=== PATIENT | female | born 1940 | race Caucasian/White ===

== ENCOUNTER → 2017-03-02 | Outpatient (CLI) | payer BC ==
[2017-01-22 10:56] VITALS: BP 135/60
[~2017-03-02] MED LIST: AMLO2.5T PO; AMLO5TAB2 PO; AMOX250C PO; ASPI-630 PO; CALC1TAB PO; CHOL500016 PO; DOCU50CA9 PO; IBAN150T PO; LISI40TA PO; MULT1TAB6 PO; OMEG300C PO; PANT40TA5 PO; PRAV40TA2 PO; REGADENOSON 0.4 MG/5 ML DISP.SYRIN. IV ONE; SENN8.6T99 PO; SPIR25TA3 PO; SUCR1TAB35 PO; VIT1TABL32 PO; WARF-78 PO; [UNRECOGNIZED DRUG - OTHER] SWSW; iron
--- NOTE | 2017-03-02 13:33 | RAD ---
APPROVED REPORT Test Type: Pharmacological Stress Nurse/Tech: Padmini Gillette R.N. Test Indications: elevated troponin Cardiac History: htn, high chol, dm Medications: see ehr Medical History: see ehr Resting ECG: sr Resting Heart Rate: 73 bpm Resting Blood Pressure: 194/78mmHg Pretest Chest Pain: No chest pain Nurse/Tech Notes lungs cta, heart tones regular Consent: The procedure was explained to the patient in lay terms. Informed consent was witnessed. Paulino eout was entered into [employer]. History and Stress Test performed by LORIN Delgado, ALIYAH (R) (N) Pharm. Details Pharmacologic stress testing was performed using 0.4mg per 5ml of regadenoson given intravenously ove r 7-10 seconds. Stress Symptoms No chest pain or symptoms. Low abd tightness and pain POST EXERCISE Reason for Termination: Infusion complete Target HR: No Max HR: 117 bpm Max Blood Pressure: 167/65mmHg Chest Pain: No. Arrhythmia: Yes. [address] Change: No. INTERPRETATION Stress EKG Conclusion: Baseline EKG showed sinus rhythm. No ischemic changes at peak stress. No arr hythmias. Imaging Protocol IMAGE PROTOCOL: Rest Tc-99m/stress Tc-99m 1 day Rest: Stress: Viability: Radiopharm.Tc99m EwdfcyxpsYn41l Sestamibi [id number] 32.2mCi Img Date 03/02/2017 03/02/2017 Inj-Img [id number]. 90min. Rest Admin Site:IV - Left AntecubitalAdministrator:LORIN Delgado ARRT (R)(N) Stress Admin Site: IV - Left AntecubitalAdministrator: RT Mary (R)(N) STRESS DATA End Diast. Vol.35.0mlAv. Heart Rate93.0bpm End Syst. Vol.3.0mlCO Index BSA0.0L/min Myocardial Mass78.0gEject. Kdmzepdz43.0% Stress Rates Pk. Fill Rate6.43EDV/secLVtime Pk. Fill 184.61msec Pk. Empty Rate6.83ESV/secLVtime Pk. Jhobf604.41msec 1/3 Pk. Fill0.71EDV/sec Stress Scores Regional WT1.00Summed WT6.00 Regional WM0.00Summed WM1.00 Study quality was good. Left Ventricular size was Normal at Rest and Stress. Lung uptake was Normal. Left Ventricular ejection fraction is >80%. The rest and stress images show normal perfusion, normal contraction and thickening. LV Perf. Quant 17 Seg. SSS0.00 17 Seg. SRS0.00 17 Seg. SDS0.00 Stress Defect Extent (% LAD)0.00Rest Defect Extent (% LAD)0.00Rev. Defect Extent (% LAD)0.00 Stress Defect Extent (% LCX) 0.00Rest Defect Extent (% LCX)0.00Rev. Defect Extent (% LCX)0.00 Stress Defect Extent (% RCA)0.00Rest Defect Extent (% RCA)0.00Rev. Defect Extent (% RCA)0.00 Stress Defect Extent (% PETE)0.00Rest Defect Extent (% PETE)0.00Rev. Defect Extent (% PETE)0.00 Conclusion 1. Regadenoson cardioisotope stress test did not show any evidence of ischemia or infarct. 2. Normal left ventricular systolic function with ejection fraction calculated at >80%. 3. Low risk for cardiac events.
== END | disposition home or self-care (01) ==
LOC: NM 08:17
PROVIDERS: ATTEND Internal Medicine Cardiovascular Disease
DX: I49.5 Sick sinus syndrome (principal); R74.8 Abnormal levels of other serum enzymes
CPT/HCPCS: 78452; 93017; 96374; 96375; 96376; A9500; J2785

== ENCOUNTER → 2017-05-07 | Outpatient (CLI) | payer BC ==
[2017-01-22 10:56] VITALS: BP 135/60
[~2017-05-07] MED LIST changes: -REGADENOSON 0.4 MG/5 ML DISP.SYRIN. IV ONE
--- NOTE | 2017-05-07 12:44 | KCIC ---
EXAM: Thyroid sonogram. HISTORY: Hyperparathyroidism. TECHNIQUE: Sonographic imaging of the neck was performed. COMPARISON: None. FINDINGS: The right thyroid lobe measures 4.4 x 1.3 x 1.3 cm. The left thyroid lobe measures 3.5 x 1.7 x 1.2 cm. The isthmus measures 1.1 mm. The thyroid parenchyma is diffusely heterogeneous. There is a solid hypoechoic nodule with hypoechoic vascular rim within the mid left thyroid lobe measuring 1.5 x 0.8 x 1.2 cm. There is a suspected complex cyst with single calcification within the inferior left thyroid lobe measuring 5 x 5 x 3 mm. No parathyroid lesion is seen. IMPRESSION: 1. 1.5 cm left thyroid nodule. This is amenable to sonographic guided fine-needle aspiration. 2. 5 mm suspected complex cyst within the left thyroid lobe. 3. Diffusely heterogeneous thyroid parenchyma. This can be seen as a sequela of prior thyroiditis. Electronically signed by: Xena Dash MD (05/07/2017 12:41 PM) [facility]
== END | disposition home or self-care (01) ==
LOC: KCIC US 12:03
PROVIDERS: ATTEND Internal Medicine
DX: E21.3 Hyperparathyroidism, unspecified (principal); E04.1 Nontoxic single thyroid nodule
CPT/HCPCS: 76536

== ENCOUNTER → 2017-05-14 | Outpatient (CLI) | payer BC ==
[2017-01-22 10:56] VITALS: BP 135/60
--- NOTE | 2017-05-14 15:29 | RAD ---
Ultrasound-guided left thyroid biopsy, 05/14/2017: History: Dominant left thyroid nodule A previous ultrasound exam demonstrated a solid nodule in the left lobe of the gland. Under local anesthesia, aseptic conditions and sonographic guidance a 25-gauge needle was passed into this nodule via an anteromedial approach. 4 separate aspirates were obtained and sent to pathology for evaluation. Hemostasis was then obtained. The patient tolerated the procedure well and left the department in good condition. The pathology results are pending.
== END | disposition home or self-care (01) ==
LOC: US 13:08
PROVIDERS: ATTEND Internal Medicine
DX: E04.1 Nontoxic single thyroid nodule (principal); I12.9 Hypertensive chronic kidney disease with stage 1 through stage 4 chronic kidney disease, or unspecified chronic kidney disease; N18.9 Chronic kidney disease, unspecified; E11.22 Type 2 diabetes mellitus with diabetic chronic kidney disease; R91.1 Solitary pulmonary nodule
CPT/HCPCS: 60300; 76942